=== PATIENT | female | born 1985 | race Caucasian/White ===

== ENCOUNTER 2019-03-31 17:04 | Inpatient (IN) | payer MEDICAID ==
[2019-03-31] MEDS: LACTATED RINGER'S 1,000 ML IV ×2 (19:05→22:24)
[2019-03-31 20:28] LABS: ADD UMIC YES; UR ASCORBIC ACID NEGATIVE (NEGATIVE); UR BACTERIA FEW /HPF (NONE SEEN); UR BILIRUBIN (Dip) NEGATIVE (NEGATIVE); UR BLOOD (Dip) NEGATIVE (NEGATIVE); UR CLARITY SLIGHTLY CLOUDY (CLEAR); UR COLOR YELLOW (YELLOW); UR GLUCOSE (Dip) NEGATIVE (NEGATIVE); UR KETONES (Dip) 1+ mg/dL (NEGATIVE); UR LEUKOCYTE ESTERASE (Dip) NEGATIVE Leu/ul (NEGATIVE); UR MUCUS FEW /HPF (NONE SEEN); UR NITRITE (Dip) NEGATIVE (NEGATIVE); UR RBC 0 /HPF (0-5); UR SPECIFIC GRAVITY (Dip) 1.014 (1.003-1.030); UR SQUAMOUS EPITHELIAL CELL FEW /HPF (FEW); UR TOTAL PROTEIN (Dip) 1+ mg/dl (NEGATIVE); UR UROBILINOGEN (Dip) NEGATIVE (NEGATIVE); UR WBC 1 /HPF (0-5)
[2019-03-31] MEDS ORDERED: OXYTOCIN 30 UNITS/LR 500 ML BAG IV (21:00)
[2019-03-31] MEDS ORDERED: CARBOPROST 250 MCG INJ (21:00)
[2019-03-31] MEDS ORDERED: METHYLERGONOVINE 0.2 MG INJ (21:00)
[2019-03-31] MEDS ORDERED: ACETAMINOPHEN 325 MG TAB PO (22:30)
[2019-04-01] MEDS: LACTATED RINGER'S 1,000 ML IV ×5 (02:30→15:23)
[2019-04-01] MEDS ORDERED: EPHEDrine SULFATE 50 MG/5 ML SYG (07:00)
[2019-04-01] MEDS: ACCU-CHEK XX (07:25)
[2019-04-01] MEDS: BETAMET NA PHOS/AC(6 MG/ML) 2 ML INJ SYG IM (08:31)
[2019-04-01] MEDS ORDERED: GLUCOSE GEL 15 GRAM TUBE BUCCAL (09:30)
[2019-04-01] MEDS ORDERED: GLUCOSE GEL 15 GRAM TUBE PO ×2 (09:30)
[2019-04-01] MEDS ORDERED: DEXTROSE 50% 50 ML SYRINGE IV ×2 (09:30)
[2019-04-01] MEDS ORDERED: GLUCAGON 1 MG INJ IM (09:30)
[2019-04-01] MEDS ORDERED: ACCU-CHEK XX (09:35)
[2019-04-01] MEDS ORDERED: CA GLUCONATE (GM) 10% 10ML INJ IV (10:30)
[2019-04-01] MEDS: MAGNESIUM SULFATE 4 GM/100 ML 100 ML IV (11:32)
[2019-04-01 11:33] LABS: ALANINE AMINOTRANSFERASE 35 IU/L (13-69); ALBUMIN 3.2 g/dl (3.3-4.9); ALBUMIN/GLOBULIN RATIO 0.94; ALKALINE PHOSPHATASE 188 IU/L (42-121); ANION GAP 9 (5-13); ASPARTATE AMINO TRANSFERASE 36 IU/L (15-46); BILIRUBIN,INDIRECT 0.5 mg/dl (0-1.1); BILIRUBIN,TOTAL 0.5 mg/dl (0.2-1.3); BLOOD UREA NITROGEN 10 mg/dl (7-20); CALCIUM 8.8 mg/dl (8.4-10.2); CARBON DIOXIDE 19 mmol/L (21-31); CHLORIDE 111 mmol/L (97-110); CREATININE 0.54 mg/dl (0.44-1.00); Estimated GFR > 60 mL/min (>60); GLUCOSE 119 mg/dl (70-220); POTASSIUM 4.3 mmol/L (3.5-5.1); SODIUM 139 mmol/L (135-144); TOTAL PROTEIN 6.6 g/dl (6.1-8.1)
[2019-04-01] MEDS: MAGNESIUM SULFATE 20 GM/500 ML 500 ML IV (11:54)
[2019-04-01] MEDS ORDERED: INSULIN ASPART [NOVOLOG] 3 ML PEN SC (13:00)
[2019-04-01] MEDS: NIFEdipine 10 MG CAP PO (13:59)
[2019-04-01 15:29] LABS: ADD MAN DIFF? NO
[2019-04-01] MEDS ORDERED: CARBOPROST 250 MCG INJ IM ×2 (15:30→18:30)
[2019-04-01] MEDS ORDERED: MISOPROSTOL 200 MCG TAB PR (15:30)
[2019-04-01] MEDS ORDERED: OXYTOCIN 30 UNITS/LR 500 ML IV ×3 (15:30→18:30)
[2019-04-01] MEDS ORDERED: CEFAZOLIN 2 GM/50 ML (PMX) 50 ML IVPB (15:30)
[2019-04-01 15:31] LABS: BASOPHILS % 0.1 % (0.0-2.0); HEMOGLOBIN 12.8 g/dl (12.0-16.0); LYMPHOCYTES # 1.8 10^3/ul (0.8-2.9); LYMPHOCYTES % 18.9 % (15.0-51.0); MEAN CORPUSCULAR HEMOGLOBIN 29.2 pg (29.0-33.0); MEAN CORPUSCULAR HGB CONC 33.7 g/dl (32.0-37.0); MEAN CORPUSCULAR VOLUME 86.6 fl (82.0-101.0); MEAN PLATELET VOLUME 10.3 fl (7.4-10.4); MONOCYTE # 0.1 10^3/ul (0.3-0.9); MONOCYTES % 0.9 % (0.0-11.0); NEUTROPHIL # 7.6 10^3/ul (1.6-7.5); NEUTROPHILS % 79.6 % (39.0-77.0); PLATELET COUNT 230 10^3/UL (140-415); RED BLOOD COUNT 4.39 10^6/ul (4.20-5.40); RED CELL DISTRIBUTION WIDTH 13.2 % (11.5-14.5)
[2019-04-01 15:31] LABS: WHITE BLOOD COUNT 9.6 10^3/ul (4.8-10.8)
[2019-04-01] MEDS: TERBUTALINE 1 MG/ML INJ SC (15:38)
[2019-04-01 15:51] LABS: INR 0.89; PROTIME 12.2 Sec (11.9-14.9)
[2019-04-01 15:52] LABS: PARTIAL THROMBOPLASTIN TIME 27.7 Sec (23.0-35.0)
[2019-04-01] MEDS ORDERED: METOCLOPRAMIDE 10 MG INJ (16:21)
[2019-04-01] MEDS ORDERED: ONDANSETRON 4 MG INJ (16:21)
[2019-04-01] MEDS ORDERED: OXYTOCIN 10 UNIT INJ (16:21)
[2019-04-01] MEDS ORDERED: morphine SULFATE/PF (10 MG/10 ML) INJ (16:21)
[2019-04-01] MEDS: AZITHROMYCIN 500MG/NS (PMX) 250 ML IVPB (16:30)
[2019-04-01] MEDS ORDERED: DEXAMETHASONE 4 MG/ML 1 ML INJ (17:28)
[2019-04-01] MEDS ORDERED: MIDAZOLAM 1 MG/ML 2 ML INJ (17:30)
[2019-04-01] MEDS: CEFAZOLIN 1 GM/50 ML (PMX) 50 ML IVPB (18:30)
[2019-04-01] MEDS ORDERED: LANOLIN HPA 1 PKT TOP (18:30)
[2019-04-01] MEDS ORDERED: SENNA/DOCUSATE NA (8.6MG/50MG) TAB PO (18:30)
[2019-04-01] MEDS ORDERED: METHYLERGONOVINE 0.2 MG INJ IM (18:30)
[2019-04-01] MEDS ORDERED: BISACODYL 10 MG SUPP PR (18:30)
[2019-04-01] MEDS ORDERED: ONDANSETRON 4 MG INJ IV ×2 (18:30→19:30)
[2019-04-01] MEDS ORDERED: ACETAMINOPHEN 325 MG TAB PO (18:30)
[2019-04-01] MEDS: OXYTOCIN 30 UNITS/LR 500 ML IV ×2 (19:12→20:55)
[2019-04-01 19:26] LABS: HEPATITIS C VIRAL ANTIBODY NEGATIVE (NEGATIVE)
[2019-04-01 19:26] LABS: HIV 1&2 ANTIBODY NEGATIVE (NEGATIVE)
[2019-04-01] MEDS ORDERED: DIPHENHYDRAMINE 50 MG INJ IV (19:30)
[2019-04-01] MEDS ORDERED: EPHEDrine 25 MG/5 ML SYG IV (19:30)
[2019-04-01] MEDS ORDERED: NALOXONE (0.4 MG/ML) INJ IV (19:30)
[2019-04-01] MEDS ORDERED: morphine 2 MG INJ IV ×2 (19:30)
[2019-04-01] MEDS: MISOPROSTOL 200 MCG TAB PR (19:31)
[2019-04-01 21:36] LABS: RAPID PLASMA REAGIN NONREACTIVE (NR)
[2019-04-01] MEDS: morphine SULFATE/PF (10 MG/10 ML) INJ SPINAL (23:22)
[2019-04-02] MEDS: CEFAZOLIN 1 GM/50 ML (PMX) 50 ML IVPB ×3 (02:11→18:25)
[2019-04-02] MEDS ORDERED: OXYTOCIN 10 UNIT INJ (05:52)
[2019-04-02] MEDS: KETOROLAC 30 MG INJ IV ×2 (06:18→12:02)
[2019-04-02] MEDS: LACTATED RINGER'S 1,000 ML IV ×4 (06:28→14:03)
[2019-04-02 07:56] LABS: ADD MAN DIFF? NO
[2019-04-02 08:03] LABS: WHITE BLOOD COUNT 19.4 10^3/ul (4.8-10.8)
[2019-04-02 08:03] LABS: BASOPHILS % 0.2 % (0.0-2.0); HEMATOCRIT 34.7 % (37.0-47.0); HEMOGLOBIN 11.8 g/dl (12.0-16.0); LYMPHOCYTES # 2.9 10^3/ul (0.8-2.9); LYMPHOCYTES % 15.1 % (15.0-51.0); MEAN CORPUSCULAR HEMOGLOBIN 29.6 pg (29.0-33.0); MEAN PLATELET VOLUME 10.3 fl (7.4-10.4); MONOCYTE # 1.3 10^3/ul (0.3-0.9); MONOCYTES % 6.4 % (0.0-11.0); NEUTROPHIL # 15.1 10^3/ul (1.6-7.5); NEUTROPHILS % 77.8 % (39.0-77.0); PLATELET COUNT 232 10^3/UL (140-415); RED BLOOD COUNT 3.99 10^6/ul (4.20-5.40); RED CELL DISTRIBUTION WIDTH 13.3 % (11.5-14.5)
[2019-04-02 08:23] LABS: ALANINE AMINOTRANSFERASE 48 IU/L (13-69); ALBUMIN 3.1 g/dl (3.3-4.9); ALBUMIN/GLOBULIN RATIO 1.06; ALKALINE PHOSPHATASE 155 IU/L (42-121); ANION GAP 6 (5-13); ASPARTATE AMINO TRANSFERASE 47 IU/L (15-46); BILIRUBIN,INDIRECT 0.5 mg/dl (0-1.1); BILIRUBIN,TOTAL 0.5 mg/dl (0.2-1.3); BLOOD UREA NITROGEN 12 mg/dl (7-20); CALCIUM 8.9 mg/dl (8.4-10.2); CARBON DIOXIDE 21 mmol/L (21-31); CHLORIDE 106 mmol/L (97-110); CREATININE 0.65 mg/dl (0.44-1.00); Estimated GFR > 60 mL/min (>60); GLUCOSE 153 mg/dl (70-220); POTASSIUM 4.4 mmol/L (3.5-5.1); SODIUM 133 mmol/L (135-144)
[2019-04-02] MEDS: PRENATAL VITAMIN PO (09:30)
[2019-04-02] MEDS: MAGNESIUM HYDROXIDE 30ML CUP PO ×2 (18:28→20:53)
[2019-04-02] MEDS: IBUPROFEN 600 MG TAB PO (18:29)
[2019-04-02] MEDS: OXYCODONE/ACETAMINOPHEN (5/325) TAB PO (20:54)
[2019-04-03] MEDS: OXYCODONE/ACETAMINOPHEN (5/325) TAB PO ×4 (02:38→22:31)
[2019-04-03 06:48] LABS: ADD MAN DIFF? NO
[2019-04-03 06:55] LABS: BASOPHILS % 0.2 % (0.0-2.0); EOSINOPHILS % 0.2 % (0.0-7.0); HEMATOCRIT 31.8 % (37.0-47.0); HEMOGLOBIN 10.7 g/dl (12.0-16.0); LYMPHOCYTES # 4.1 10^3/ul (0.8-2.9); MEAN CORPUSCULAR HEMOGLOBIN 29.3 pg (29.0-33.0); MEAN CORPUSCULAR HGB CONC 33.6 g/dl (32.0-37.0); MEAN CORPUSCULAR VOLUME 87.1 fl (82.0-101.0); MEAN PLATELET VOLUME 10.2 fl (7.4-10.4); MONOCYTE # 0.7 10^3/ul (0.3-0.9); MONOCYTES % 5.5 % (0.0-11.0); NEUTROPHIL # 7.5 10^3/ul (1.6-7.5); NEUTROPHILS % 60.7 % (39.0-77.0); PLATELET COUNT 217 10^3/UL (140-415); RED BLOOD COUNT 3.65 10^6/ul (4.20-5.40); RED CELL DISTRIBUTION WIDTH 13.4 % (11.5-14.5)
[2019-04-03 06:55] LABS: WHITE BLOOD COUNT 12.3 10^3/ul (4.8-10.8)
[2019-04-03] MEDS: IBUPROFEN 600 MG TAB PO ×2 (08:12→17:18)
[2019-04-03] MEDS: PRENATAL VITAMIN PO (08:12)
[2019-04-04] MEDS: OXYCODONE/ACETAMINOPHEN (5/325) TAB PO (04:04)
[2019-04-04] MEDS: IBUPROFEN 600 MG TAB PO ×2 (06:14→12:47)
[2019-04-04] MEDS: PRENATAL VITAMIN PO (09:23)
== END 2019-04-04 14:57 | disposition home or self-care (01) | DRG 788 ==
LOC: OBT 17:04 → L-D 17:06 → OBT 21:41 → L-D 04-01 16:25 → PP1 04-01 21:35
PROVIDERS: Obstetrics & Gynecology
PROC: 4A1HXCZ Monitoring of Products of Conception, Cardiac Rate, External Approach (ICD-10-PCS; principal; 2019-03-31)
PROC: 10D00Z1 Extraction of Products of Conception, Low, Open Approach (ICD-10-PCS; 2019-04-01)
DX: O60.14X0 Preterm labor third trimester with preterm delivery third trimester, not applicable or unspecified (principal); O36.8130 Decreased fetal movements, third trimester, not applicable or unspecified; Z3A.34 34 weeks gestation of pregnancy; O24.410 Gestational diabetes mellitus in pregnancy, diet controlled; O40.3XX0 Polyhydramnios, third trimester, not applicable or unspecified; E66.9 Obesity, unspecified; Z68.36 Body mass index [BMI] 36.0-36.9, adult; O34.219 Maternal care for unspecified type scar from previous cesarean delivery; Z37.0 Single live birth
CPT/HCPCS: 36415; 76815; 76817; 76818; 80053; 81001; 82731; 82962; 85025; 85610; 85730; 86592; 86703; 86803; 86850; 86900; 86901; 87086; 88307; 96360; 96361; 99464